=== PATIENT | male | born 2000 ===

== ENCOUNTER 2024-11-22 01:01 | Emergency (ER) | payer BC ==
[~2024-11-22] VITALS: Ht 172.7 cm; Wt 72.6 kg
[2024-11-22] MEDS ORDERED: CEPH500 PO (03:47)
== END 2024-11-22 03:54 | disposition home or self-care (01) ==
LOC: ER 01:01
DX: S91.312A Laceration without foreign body, left foot, initial encounter (principal); Z59.89 Other problems related to housing and economic circumstances; W22.8XXA Striking against or struck by other objects, initial encounter
CPT/HCPCS: 99282